=== PATIENT | male | born 1990 | race Caucasian/White ===

== ENCOUNTER 2016-12-15 17:05 | Inpatient (IN) | payer OTHER ==
[~2016-12-15] VITALS: Ht 185.4 cm; Wt 84.7 kg
[2016-12-15 17:13] VITALS: BP 127/80; PULSE 94; RESP 17; TEMP 98.7; O2SAT 100
--- NOTE | 2016-12-15 17:32 | PD ---
HPI . left foot shark bite Chief Complaint: Bite or Sting Time Seen by Provider: 17:31 Travel History International Travel<30 days: No Contact w/Intl Traveler<30days: No Traveled to known affect area: No History of Present Illness HPI 26 yr old male here with left foot shark bite he sustained just prior to arrival. He reports pain with movement. He is up to date on his tetanus. He has limited ROM of his toes. [facility] Past Medical History Medical History: Denies Significant Hx Past Surgical History Surgical History: No Previous Surgery Social History Alcohol Use: Yes (SOCIALLY ) Tobacco Use: No Substance Use: No Allergies-Medications (Allergen,Severity, Reaction): Coded Allergies: aspirin (Verified Allergy, Severe, 12/15/16) Reported Meds & Prescriptions Reported Meds & Active Scripts Active No Active Prescriptions or Reported Medications Review of Systems General / Constitutional: No: Fever Eyes: No: Visual changes HENT: No: Headaches Cardiovascular: No: Chest Pain or Discomfort Respiratory: No: Shortness of Breath Gastrointestinal: No: Abdominal Pain Genitourinary: No: Dysuria Musculoskeletal: Positive: Pain (left foot) Skin: Positive Other (gaping wound of left foot), No Rash Neurologic: No: Weakness Psychiatric: No: Depression Endocrine: No: Polydipsia Hematologic/Lymphatic: No: Easy Bruising Physical Exam Narrative GENERAL: AAO x 3, no acute distress, Well-nourished, well-developed patient. SKIN: Warm and dry. No visible rashes or bruising. left foot dorsum distal to the navicular bone, large gaping wound. also on the medial aspect large lacerations with jagged edges and missing skin, teeth pickett present. HEAD: Normocephalic and atraumatic. EYES: No scleral icterus. No injection or drainage. ENT: No nasal drainage noted. Mucous membranes pink. Airway patent. NECK: Supple, trachea midline. No JVD. CARDIOVASCULAR: Regular rate and rhythm without murmurs, gallops, or rubs. RESPIRATORY: Breath sounds equal bilaterally. No accessory muscle use. No rhonchi or rales. GASTROINTESTINAL: Abdomen soft, non-tender, nondistended. EXTREMITIES: No cyanosis or edema. decreased ability to move toes in the left foot. BACK: No obvious deformity. NEURO: CN II-12 intact, PSYCH: AAO x 3, normal affect. Data Data Last Documented VS Vital Signs Date Time Temp Pulse Resp B/P (MAP) Pulse Ox O2 Delivery O2 Flow Rate FiO2 12/15/16 17:13 98.7 94 17 127/80 (96) 100 Orders Orders Foot, Complete ([id number]) (12/15/16 17:32) Complete Blood Count With Diff (12/15/16 17:49) Basic Metabolic Panel (Bmp) (12/15/16 17:49) Prothrombin Time / Inr (Pt) (12/15/16 17:49) Act Partial Throm Time (Ptt) (12/15/16 17:49) NPO (12/15/16 17:50) Consult Podiatry (12/15/16 ) (Hub Use Only)Inp Phy Cons/Ref (12/15/16 ) Admit To Inpatient (12/15/16 ) Vital Signs (Adult) Q4H (12/15/16 18:16) Activity Bed Rest (12/15/16 18:16) Sodium Chlor 0.9% 1000 Ml Inj (Ns 1000 M (12/15/16 18:16) Sodium Chloride 0.9% Flush (Ns Flush) (12/15/16 18:30) Sodium Chloride 0.9% Flush (Ns Flush) (12/15/16 21:00) Acetaminophen (Tylenol) (12/15/16 18:30) Ondansetron Inj (Zofran Inj) (12/15/16 18:30) Naloxone Inj (Narcan Inj) (12/15/16 18:30) Docusate Sodium-Senna (Samreen-Colace) (12/15/16 21:00) Magnesium Hydroxide Liq (Milk Of Magnesi (12/15/16 18:30) Sennosides (Senokot) (12/15/16 18:30) Bisacodyl Supp (Dulcolax Supp) (12/15/16 18:30) Lactulose Liq (Lactulose Liq) (12/15/16 18:30) Inpatient Certification (12/15/16 ) Piperacil-Tazo 4.5 Gm Premix (Zosyn 4.5 (12/15/16 18:30) Clindamycin Inj (Cleocin Inj) (12/15/16 18:30) Admit Order (Ed Use Only) (12/15/16 18:19) Mri Foot W/O Contrast (12/15/16 ) Labs Laboratory Tests Test 12/15/16 18:00 White Blood Count 15.7 TH/MM3 Red Blood Count 4.69 MIL/MM3 Hemoglobin 15.0 GM/DL Hematocrit 43.1 % Mean Corpuscular Volume 91.8 FL Mean Corpuscular Hemoglobin 31.9 PG Mean Corpuscular Hemoglobin Concent 34.8 % Red Cell Distribution Width 13.2 % Platelet Count 174 TH/MM3 Mean Platelet Volume 7.3 FL Neutrophils (%) (Auto) 85.1 % Lymphocytes (%) (Auto) 8.0 % Monocytes (%) (Auto) 6.1 % Eosinophils (%) (Auto) 0.4 % Basophils (%) (Auto) 0.4 % Neutrophils # (Auto) 13.4 TH/MM3 Lymphocytes # (Auto) 1.3 TH/MM3 Monocytes # (Auto) 1.0 TH/MM3 Eosinophils # (Auto) 0.1 TH/MM3 Basophils # (Auto) 0.1 TH/MM3 CBC Comment DIFF FINAL Differential Comment Prothrombin Time 12.0 SEC Prothromb Time International Ratio 1.1 RATIO Activated Partial Thromboplast Time 24.7 SEC Blood Urea Nitrogen 17 MG/DL Creatinine 1.23 MG/DL Random Glucose 96 MG/DL Calcium Level 9.1 MG/DL Sodium Level 138 MEQ/L Potassium Level 3.7 MEQ/L Chloride Level 105 MEQ/L Carbon Dioxide Level 25.3 MEQ/L Anion Gap 8 MEQ/L Estimat Glomerular Filtration Rate 70 ML/MIN MDM Medical Decision Making Medical Screen Exam Complete: Yes Emergency Medical Condition: Yes Medical Record Reviewed: Yes Differential Diagnosis left foot shark bite, tendon damage to left foot, Narrative Course 26 yr old male here with shark bite of his left foot. On exam he has decreased ROM of his left toes. I suspect tendon injury. I recommend podiatry consult. I have asked Dr. Cruz to see the patient. He agrees. Dr. Cruz has spoken to Dr. Powell, who recommends MRI w and wo contrast. Labs have been ordered. NPO after midnight. OR in morning. Patient admitted. Dr. Cruz has discussed with Dr. Pina Diagnosis Primary Impression: Bitten by shark, initial encounter Additional Impression: Foot injury Qualified Codes: S99.922A - Unspecified injury of left foot, initial encounter Admitting Information Admitting Physician Requests: Admit Scripts No Active Prescriptions or Reported Meds Condition: Stable Madai Saavedra Dec 15, 2016 17:32
--- NOTE | 2016-12-15 18:09 | PD ---
Physical Exam Date Seen by Provider: Dec 15, 2016 Narrative SEEN PATIENT IN CONJUNCTION WITH ELIEZER ARGUETA FOCUS EXAM: LEFT DORSUM WOUND OVER EXTENSOR COMPARTMENT WITHOUT ANY PULSATILE MASS OR ACTIVE BLEEDING, GOOD DISTAL PACKER INSPECTOR, WOUND MEASUREMENTS OVAL SHAPED [id number], DIGITS 2-5TH PASSIVELY FLEXED DUE TO UNOPPOSED FLEXORS, PATIENT UNABLE TO EXTEND DIGITS 2-5 FULLY, WARM TO TOUCH DISTALLY WELL PINK APPEARANCE. NVI EXCEPT AROUND WOUND WHICH IS EXPECTED.. Data Data Last Documented VS Vital Signs Date Time Temp Pulse Resp B/P (MAP) Pulse Ox O2 Delivery O2 Flow Rate FiO2 12/15/16 17:13 98.7 94 17 127/80 (96) 100 Orders Orders Foot, Complete ([id number]) (12/15/16 17:32) Mri Foot W&W/O Contrast (12/15/16 ) Complete Blood Count With Diff (12/15/16 17:49) Basic Metabolic Panel (Bmp) (12/15/16 17:49) Prothrombin Time / Inr (Pt) (12/15/16 17:49) Act Partial Throm Time (Ptt) (12/15/16 17:49) NPO (12/15/16 17:50) Diet Npo Except Meds (12/15/16 Dinner) Consult Podiatry (12/15/16 ) MDM Medical Record Reviewed: Yes Supervised Visit with ADDI: Yes Physician Communication Physician Communication DISCUSSED FULLY WITH KOURTNEY (OUTSOLE SKIVER) WHO RECC NPO AFTER MIDNIGHT WELL MRI W/W/O OF FOOT, VERY APPRECIATIVE OF HIS INPUT Diagnosis Primary Impression: ACUTE SHARK BITE WITH EXTENSOR TENDON INJURY Admitting Information Admitting Physician Requests: Observation Scripts No Active Prescriptions or Reported Meds Freddy Cruz MD Dec 15, 2016 18:09
[2016-12-15 18:28] LABS: AUTOMATED NEUTROPHIL # 13.4 TH/MM3 (1.8-7.7); BASOPHIL # 0.1 TH/MM3 (0-0.2); BASOPHIL % 0.4 % (0.0-2.0); EOSINOPHIL # 0.1 TH/MM3 (0-0.4); EOSINOPHIL % 0.4 % (0.0-4.0); HEMATOCRIT 43.1 % (39.0-51.0); HEMO FLAGS DIFF FINAL; LYMPHOCYTE # 1.3 TH/MM3 (1.0-4.8); MEAN CELL VOLUME 91.8 FL (80.0-100.0); MEAN CORPUSCULAR HEMOGLOBIN 31.9 PG (27.0-34.0); MEAN CORPUSCULAR HGB CONC 34.8 % (32.0-36.0); MONO % 6.1 % (0.0-8.0); NEUT % 85.1 % (16.0-70.0); PLATELET COUNT 174 TH/MM3 (150-450); RED BLOOD COUNT 4.69 MIL/MM3 (4.50-5.90); RED CELL DISTRIBUTION WIDTH 13.2 % (11.6-17.2); WHITE BLOOD COUNT 15.7 TH/MM3 (4.0-11.0)
[2016-12-15] MEDS ORDERED: PIPERACIL-TAZO 4.5 GM PREMIX 100 ML IV ONE (18:30)
[2016-12-15] MEDS ORDERED: SODIUM CHLORIDE 0.9% FLUSH 10 ML FLUSH IV FLUSH PRN (18:30)
[2016-12-15] MEDS ORDERED: NALOXONE HCL 0.4 MG/ML AMP IV PUSH PRN (18:30)
[2016-12-15] MEDS ORDERED: ONDANSETRON HCL 4 MG/2 ML VIAL IVP PRN (18:30)
[2016-12-15] MEDS ORDERED: ACETAMINOPHEN 325 MG TAB PO PRN (18:30)
[2016-12-15] MEDS ORDERED: CLINDAMYCIN INJ 900 MG in SODIUM CHLORIDE 0.9% INJ 100 ML IV ONE (18:30)
[2016-12-15] MEDS ORDERED: LACTULOSE SYRUP 20 GM/30 ML CUP PO PRN (18:30)
[2016-12-15] MEDS ORDERED: SENNOSIDES 8.6 MG TAB PO PRN (18:30)
[2016-12-15] MEDS ORDERED: BISACODYL 10 MG SUPP RECTAL PRN (18:30)
--- NOTE | 2016-12-15 18:31 | RADRPT ---
EXAM DATE/TIME: 12/15/2016 17:49 [facility] COMPARISON: No previous studies available for comparison. INDICATIONS : Laceration to lateral side of foot- Shark bite. MEDICAL HISTORY : None. SURGICAL HISTORY : None. ENCOUNTER: Initial ACUITY: 1 day PAIN SCORE: 7/10 LOCATION: Left lateral Foot. FINDINGS: Soft tissue swelling involving the left midfoot region. No radiopaque foreign bodies. Osseous structu res are intact. Joint spaces are maintained. CONCLUSION: 1. Left midfoot soft tissue swelling without subcutaneous emphysema, radiopaque foreign body, or acut e bony fracture. Alec Bauer MD on December 15, 2016 at 18:28 Board Certified Radiologist. This report was verified electronically.
[2016-12-15 18:35] LABS: APTT (PATIENT) 24.7 SEC (24.3-30.1); INTERNATIONAL NORMALIZED RATIO 1.1 RATIO
--- NOTE | 2016-12-15 18:40 | HHI.HP ---
[facility] Service [facility] Primary Care Physician Unknown Admission Diagnosis LEFT FOOT SHARK BITE WITH EXTENSOR TENDON INJURY Diagnoses: Chief Complaint: Left foot wound secondary to short by Travel History International Travel<30 Days: No Contact w/Intl Traveler <30 Da: No Traveled to Known Affected Are: No History of Present Illness This is a 26-year-old healthy male who presented with left foot wound secondary to shark bit. Patient went to the ER immediately after the shark bite. He stated that he is able to feel sensation and stated that pain is mild. Patient unsure when he last got his tetanus shot. Denies any fevers or chills. He has no other complaints. All other review systems reviewed and negative Past Family Social History Past Medical History Denies any past medical history. Past Surgical History Denies any past surgical history. Reported Medications Reported Meds & Active Scripts Active No Active Prescriptions or Reported Medications Allergies: Coded Allergies: aspirin (Verified Allergy, Severe, 12/15/16) Active Ordered Medications Current Medications Sodium Chloride 1,000 ml @ 100 mls/hr Q10H IV ; Start 12/15/16 at 18:16 Sodium Chloride (NS Flush) 2 ml UNSCH PRN IV FLUSH FLUSH AFTER USING IV ACCESS ; Start 12/15/16 at 18:30 Sodium Chloride (NS Flush) 2 ml BID IV FLUSH ; Start 12/15/16 at 21:00 Acetaminophen (Tylenol) 650 mg Q4H PRN PO TEMP > 100.4; Start 12/15/16 at 18:30 Ondansetron HCl (Zofran Inj) 4 mg Q6H PRN IVP NAUSEA OR VOMITING; Start at 18:30 Naloxone HCl (Narcan Inj) 0.4 mg UNSCH PRN IV PUSH SEE LABEL COMMENTS; Start at 18:30 Senna/Docusate Sodium (Samreen-Colace) 1 tab BID PO ; Start 12/15/16 at 21:00 Magnesium Hydroxide (Milk Of Magnesia Liq) 30 ml Q12H PRN PO MILD - MODERATE CONSTIPATION; Start 12/15/16 at 18:30 Sennosides (Senokot) 17.2 mg Q12H PRN PO MODERATE - SEVERE CONSTIPATION; Start 12/15/16 at 18:30 Bisacodyl (Dulcolax Supp) 10 mg DAILY PRN RECTAL SEVERE CONSITIPATION; Start at 18:30 Lactulose (Lactulose Liq) 30 ml DAILY PRN PO SEVERE CONSITIPATION; Start at 18:30 Piperacillin Sod/ Tazobactam Sod 100 ml @ 200 mls/hr ONCE ONCE IV ; Start at 18:30; Stop 12/15/16 at 18:59 Clindamycin Phosphate 900 mg/ Sodium Chloride 106 ml @ 212 mls/hr ONCE ONCE IV ; Start 12/15/16 at 18:30; Stop 12/15/16 at 18:59 Morphine Sulfate (Morphine Inj) 2 mg Q3H PRN IV PUSH pain 4-10; Start 12/15/16 at 18:45; Status UNV Diphtheria/ Tetanus/Acell Pertussis (Boostrix Inj) 0.5 ml ONCE ONCE IM ; Start 12/15/16 at 18:45; Stop 12/15/16 at 18:46; Status UNV Ampicillin Sodium/ Sulbactam Sodium 3 gm/Sodium Chloride 100 ml @ 200 mls/hr Q6H IV ; Start 12/15/16 at 18:45; Status UNV Clindamycin Phosphate 600 mg/ Sodium Chloride 104 ml @ 208 mls/hr Q6H IV ; Start 12/16/16 at 00:30; Status UNV Family History Past family history reviewed. Social History Drinks occasionally. Denied any tobacco or illicit drug use. Physical Exam Vital Signs Vital Signs Date Time Temp Pulse Resp B/P (MAP) Pulse Ox O2 Delivery O2 Flow Rate FiO2 12/15/16 17:13 98.7 94 17 127/80 (96) 100 Physical Exam GENERAL: This is a well-nourished, well-developed patient, in no apparent distress. SKIN: + left foot + open wounds X 2 bloody. HEAD: Atraumatic. Normocephalic. No temporal or scalp tenderness. EYES: Pupils equal round and reactive. Extraocular motions intact. No scleral icterus. No injection or drainage. ENT: Nose without bleeding, purulent drainage or septal hematoma. Throat without erythema, tonsillar hypertrophy or exudate. Uvula midline. Airway patent. NECK: Trachea midline. No JVD or lymphadenopathy. Supple, nontender, no meningeal signs. CARDIOVASCULAR: Regular rate and rhythm without murmurs, gallops, or rubs. RESPIRATORY: Clear to auscultation. Breath sounds equal bilaterally. No wheezes , rales, or rhonchi. GASTROINTESTINAL: Abdomen soft, non-tender, nondistended. No hepato-splenomegaly , or palpable masses. No guarding. MUSCULOSKELETAL: left foot unable to dorsal flex. NEUROLOGICAL: Awake and alert. Cranial nerves II through XII intact. Motor and sensory grossly within normal limits. Five out of 5 muscle strength in all muscle groups. Normal speech. Laboratory Laboratory Tests Test 12/15/16 18:00 White Blood Count 15.7 Red Blood Count 4.69 Hemoglobin 15.0 Hematocrit 43.1 Mean Corpuscular Volume 91.8 Mean Corpuscular Hemoglobin 31.9 Mean Corpuscular Hemoglobin Concent 34.8 Red Cell Distribution Width 13.2 Platelet Count 174 Mean Platelet Volume 7.3 Neutrophils (%) (Auto) 85.1 Lymphocytes (%) (Auto) 8.0 Monocytes (%) (Auto) 6.1 Eosinophils (%) (Auto) 0.4 Basophils (%) (Auto) 0.4 Neutrophils # (Auto) 13.4 Lymphocytes # (Auto) 1.3 Monocytes # (Auto) 1.0 Eosinophils # (Auto) 0.1 Basophils # (Auto) 0.1 CBC Comment DIFF FINAL Differential Comment Prothrombin Time 12.0 Prothromb Time International Ratio 1.1 Activated Partial Thromboplast Time 24.7 Result Diagram: 12/15/16 1800 Imaging Last Impressions Foot X-Ray 12/15/16 [id number] Signed Impressions: Service Date/Time: Thursday, December 15, 2016 17:49 - CONCLUSION: 1. Left midfoot soft tissue swelling without subcutaneous emphysema, radiopaque foreign body, or acute bony fracture. MD Anuj Ceja VTE Risk Assessment Juhii VTE Risk Assessment: No/Low Risk (score <= 1) Caprini Risk Assessment Model Point Value = 1 Point Value = 2 Point Value = 3 Point Value = 5 Age 41-60 Minor surgery BMI > 25 kg/m2 Swollen legs Varicose veins or History of unexplained or recurrent spontaneous Oral contraceptives or hormone replacement Sepsis (< 1 month) Serious lung disease, including pneumonia (< 1 month) Abnormal pulmonary function Acute myocardial infarction Congestive heart failure (< 1 month) History of inflammatory bowel disease Medical patient at bed rest Age 61-74 Arthroscopic surgery Major open surgery (> 45 min) Laparoscopic surgery (> 45 min) Malignancy Confined to bed (> 72 hours) Immobilizing plaster cast Central venous access Age >= 75 History of VTE Family history of VTE Factor V Leiden Prothrombin [id number] Lupus anticoagulant Anticardiolipin antibodies Elevated serum homocysteine Heparin-induced thrombocytopenia Other congenital or acquired thrombophilia Stroke (< 1 month) Elective arthroplasty Hip, pelvis, or leg fracture Acute spinal cord injury (< 1 month) Prophylaxis Regimen Total Risk Factor Score Risk Level Prophylaxis Regimen 0-1 Low Early ambulation 2 Moderate Order ONE of the following: *Sequential Compression Device (SCD) *Heparin 5000 units SQ BID 3-4 Higher Order ONE of the following medications: *Heparin 5000 units SQ TID *Enoxaparin/Lovenox 40 mg SQ daily (WT < 150 kg, CrCl > 30 mL/min) *Enoxaparin/Lovenox 30 mg SQ daily (WT < 150 kg, CrCl > 10-29 mL/min) *Enoxaparin/Lovenox 30 mg SQ BID (WT < 150 kg, CrCl > 30 mL/min) AND/OR *Sequential Compression Device (SCD) 5 or more Highest Order ONE of the following medications: *Heparin 5000 units SQ TID (Preferred with Epidurals) *Enoxaparin/Lovenox 40 mg SQ daily (WT < 150 kg, CrCl > 30 mL/min) *Enoxaparin/Lovenox 30 mg SQ daily (WT < 150 kg, CrCl > 10-29 mL/min) *Enoxaparin/Lovenox 30 mg SQ BID (WT < 150 kg, CrCl > 30 mL/min) AND *Sequential Compression Device (SCD) Assessment and Plan Assessment and Plan 26-year-old male who presented with left foot wounds secondary shark bites Left foot wounds secondary to shark bites -X-ray obtained showing midfoot swelling. -Dr. Powell already consulted and requested MRI of the foot and nothing by mouth at midnight. Order already placed. -Patient was given clindamycin and Zosyn in the ED. Will give Unasyn and continue clindamycin. Will consult infectious disease. -Patient unsure when he last got his tetanus shot. Due to severe of wound will give Tdap. Leukocytosis -Most likely secondary to wound. Treatment as above. -Continue to monitor clinically. Code Status full code Discussed Condition With patient Physician Certification 2 Midnight Certification Type: Admission for Inpatient Services Order for Inpatient Services The services are ordered in accordance with Medicare regulations or non- Medicare payer requirements, as applicable. In the case of services not specified as inpatient-only, they are appropriately provided as inpatient services in accordance with the 2-midnight benchmark. Estimated LOS (days): 3 3 days is the estimated time the patient will need to remain in the hospital, assuming treatment plan goals are met and no additional complications. Post-Hospital Plan: Hines Anita Pina MD Dec 15, 2016 18:40
[2016-12-15] MEDS: SODIUM CHLOR 0.9% 1000 ML INJ 1,000 ML IV SCH (18:43)
[2016-12-15] MEDS ORDERED: DIPHTH/TETANUS/ACEL PERTUSSIS (BOOSTER) 0.5 ML VIAL/PFS IM ONE (18:45)
[2016-12-15 18:50] LABS: BICARBONATE 25.3 MEQ/L (21.0-32.0); POTASSIUM 3.7 MEQ/L (3.5-5.1)
[2016-12-15] MEDS: MORPHINE SULFATE 4 MG/ML INJ IV PUSH PRN ×2 (19:13→23:46)
[2016-12-15 19:55] VITALS: BP 156/91; PULSE 110; RESP 16; TEMP 96.8; O2SAT 98
--- NOTE | 2016-12-15 20:29 | RADRPT ---
EXAM DATE/TIME: 12/15/2016 19:24 [facility] COMPARISON: No previous studies available for comparison. INDICATIONS : Internal derangement. Shark bite MEDICAL HISTORY : None. SURGICAL HISTORY : None. ENCOUNTER: Initial ACUITY: 1 day PAIN SCORE: 4/10 LOCATION: Left foot TECHNIQUE: Multiplanar, multisequence MRI examination was performed without contrast. FINDINGS: Deep and irregular soft tissue lacerations are seen at the level of the mid foot, both dorsal/lateral and plantar/medial. The dorsal/lateral soft tissue injury is associated with transection of the extensor digitorum longus tendons with approximately 27 mm of separation at the level of the cuneiforms. There is a 12 mm sepa rated laceration of extensor digitorum brevis, near the level of the mid muscle belly. Tibialis anter ior and extensor hallucis longus are intact. The plantar/medial soft tissue injury includes a transection of adductor hallucis at the level of the distal myotendinous junction with approximately 1 cm of separation of the tendon fibers, series 7 im age 20 and series 5 image 15. Tibialis posterior, flexor hallucis longus and flexor digitorum longus are all intact. I don't see a fracture. No subluxations. CONCLUSION: 1. Deep soft tissue laceration dorsally of the midfoot and with associated rupture of extensor digito rum longus with 27 mm of separation. There is a 12 mm cleft of extensor digitorum brevis mu scle belly. 2. Deep soft tissue laceration of the plantar/medial midfoot and with a 10 mm rupture of ab ductor pollicis. 3. No fracture or subluxation. Louie Colón MD on December 15, 2016 at 20:15 Board Certified Radiologist. This report was verified electronically.
[2016-12-15] MEDS: DOCUSATE SODIUM 50 MG/SENNA 8.6 MG TAB PO SCH (21:27)
[2016-12-15] MEDS: SODIUM CHLORIDE 0.9% FLUSH 10 ML FLUSH IV FLUSH SCH (21:27)
[2016-12-15] MEDS: AMPICILLIN-SULBACTAM INJ 3 GM in SODIUM CHLORIDE 0.9% INJ 100 ML IV SCH (21:27)
[2016-12-16] VITALS (7 sets, daily range): BP systolic 117–128; BP diastolic 69–78; PULSE 70–97; RESP 16; TEMP 97.2–98.7; O2SAT 99–100
[2016-12-16] MEDS: CLINDAMYCIN INJ 600 MG in SODIUM CHLORIDE 0.9% INJ 100 ML IV SCH ×4 (02:13→20:31)
[2016-12-16] MEDS: AMPICILLIN-SULBACTAM INJ 3 GM in SODIUM CHLORIDE 0.9% INJ 100 ML IV SCH ×3 (02:13→14:00)
[2016-12-16] MEDS: SODIUM CHLOR 0.9% 1000 ML INJ 1,000 ML IV SCH ×2 (02:57→14:16)
[2016-12-16] MEDS: MORPHINE SULFATE 4 MG/ML INJ IV PUSH PRN ×3 (03:04→22:10)
[2016-12-16] MEDS ORDERED: SODIUM CHLORID 0.9% 500 ML IV PRN (04:00)
[2016-12-16] MEDS ORDERED: METOPROLOL TARTRATE 25 MG TAB PO PRN (04:00)
[2016-12-16] MEDS ORDERED: INSULIN HUMAN REGULAR 1,000 UNITS/10 ML VIAL SQ PRN (04:00)
[2016-12-16] MEDS ORDERED: CHLORHEXIDINE GLUCONATE 2 % 1 PACK (2 CLOTHS) TOPICAL PRN (04:00)
[2016-12-16] MEDS ORDERED: LACTATED RINGER'S 1000 ML IV PRN (04:00)
[2016-12-16] MEDS ORDERED: POVIDONE IODINE 5% (ANTISEPSIS KIT) 4 APPLICATIONS EACH NARE PRN (04:00)
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
[2016-12-16] MEDS: DOCUSATE SODIUM 50 MG/SENNA 8.6 MG TAB PO SCH ×2 (08:33→20:31)
[2016-12-16] MEDS: SODIUM CHLORIDE 0.9% FLUSH 10 ML FLUSH IV FLUSH SCH ×3 (08:41→20:32)
[2016-12-16 10:03] LABS: HEMATOCRIT 45.4 % (39.0-51.0); MEAN CELL VOLUME 93.4 FL (80.0-100.0); MEAN CORPUSCULAR HEMOGLOBIN 31.5 PG (27.0-34.0); MEAN CORPUSCULAR HGB CONC 33.7 % (32.0-36.0); PLATELET COUNT 192 TH/MM3 (150-450); RED BLOOD COUNT 4.85 MIL/MM3 (4.50-5.90); RED CELL DISTRIBUTION WIDTH 13.7 % (11.6-17.2); REVIEW FLAG FINAL; WHITE BLOOD COUNT 10.6 TH/MM3 (4.0-11.0)
[2016-12-16 10:33] LABS: POTASSIUM 3.3 MEQ/L (3.5-5.1)
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
[2016-12-16] MEDS ORDERED: NEOSTIGMINE 3 MG/3 ML SYR IV ONE (12:00)
[2016-12-16] MEDS ORDERED: ONDANSETRON HCL 4 MG/2 ML VIAL IV PUSH ONE (12:00)
[2016-12-16] MEDS ORDERED: ROCURONIUM INJ 50 MG/5 ML SYRINGE IV PUSH ONE (12:00)
[2016-12-16] MEDS ORDERED: GLYCOPYRROLATE 0.2 MG/ML VIAL IV ONE (12:00)
[2016-12-16] MEDS ORDERED: DEXAMETHASONE SOD PHOS 4 MG/ML VIAL IV ONE (12:00)
[2016-12-16] MEDS ORDERED: PROPOFOL 200 MG/20 ML AMP IV ONE (12:00)
[2016-12-16] MEDS ORDERED: MORPHINE SULFATE 4 MG/ML INJ IV ONE (12:00)
[2016-12-16] MEDS ORDERED: MIDAZOLAM HCL 2 MG/2 ML VIAL IV ONE (12:00)
[2016-12-16] MEDS ORDERED: LIDOCAINE HCL 1% PF 5 ML AMPULE OTHER ONE (12:00)
[2016-12-16] MEDS ORDERED: BUPIVACAINE HCL PF 0.5% 10 ML VIAL INFIL ONE (15:37)
--- NOTE | 2016-12-16 15:44 | PD.OP ---
Operative Report Date of Surgery: Dec 16, 2016 Preoperative Diagnosis: (1) Bitten by shark, initial encounter Left foot Postoperative Diagnosis: (1) Bitten by shark, initial encounter Left foot Procedure: Irrigation and wounds with debridement with repair of extensor digitorum and brevis tendons. Application of negative pressure wound VAC all left foot Anesthesia: General inhalation Surgeon: Rickie Powell DPM Metal Stud Framer(s): OSIIRS Operation and Findings: Patient was brought to the OR and placed on the operating table in the supine position and pneumatic ankle cuff was applied to the left ankle after adequate web roll padding. After the dressing was removed patient started bleeding profusely and the pneumatic ankle cuff was inflated to 250 mercury. Left lower extremity was lowered to the operating table and after the appropriate timeout was performed attention was directed to the left foot. It was noted that the patient had a sharp plate medially and dorsally with a defect in the skin and severing of the extensor digitorum tendons at its muscle belly. Any stray skin edges were excised. A versa jet was utilized to clean out all hematoma from all of the plate marked areas. The extensor digitorum tendon or identified and although there was a defect they were reattached to the muscle belly using 3-0 polyester. Attention was directed to the medial aspect of the foot were all necrotic skin edges were removed. Areas were cleaned up and the devitalized tissue was removed. Surgical skin chinyere were utilized to hold any skin edges together. 2-0 Vicryl was utilized on the dorsal lateral defect. The wound VAC set at 125 mmHg was applied to the foot covering both the medial and dorsal wounds. Good seal the wound VAC was noted. Estimated blood loss was less than 20 cc. The pneumatic ankle cuff was deflated and vascular status returned to all digits of the left foot. Sponge and instrument count were noted to be correct. Patient tolerated the procedures and anesthesia well and left the OR to PACU in apparent satisfactory conditions without S signs stable endovascular status intact to the left foot. 15 cc 0.5% Marcaine was infiltrated prior to applying the negative pressure wound VAC to the left foot. Rickie Powell DPM Dec 16, 2016 15:44
[2016-12-16] MEDS ORDERED: SODIUM CHLORIDE 0.9% FLUSH 10 ML FLUSH IV FLUSH PRN (15:45)
[2016-12-16] MEDS ORDERED: Post-op Orders (for Pharmacy) MISC XX ONE (15:45)
[2016-12-16] MEDS ORDERED: HYDROmorphone HCL PF 1 MG/ML VIAL IV PUSH PRN ×2 (15:45)
[2016-12-16] MEDS ORDERED: NALOXONE HCL 0.4 MG/ML AMP IV PUSH PRN (15:45)
[2016-12-16] MEDS ORDERED: HYDROmorphone HCL 2 MG TAB PO PRN (15:45)
[2016-12-16] MEDS ORDERED: DOXYCYCLINE INJ 100 MG in SODIUM CHLORIDE 0.9% INJ 100 ML IV SCH (18:00)
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
[2016-12-16] MEDS: LEVOFLOXACIN 750 MG PREMIX INJ 150 ML IV SCH (19:06)
[2016-12-16] MEDS ORDERED: POTASSIUM CHLORIDE 10 MEQ CONTROLLED RELEASE TAB PO ONE (19:30)
[2016-12-16] MEDS: DOXYCYCLINE INJ 100 MG in SODIUM CHLORIDE 0.9% INJ 100 ML IV SCH (22:02)
[2016-12-17] MEDS: SODIUM CHLOR 0.9% 1000 ML INJ 1,000 ML IV SCH ×3 (00:17→20:06)
[2016-12-17 00:19] VITALS: BP 111/63; PULSE 76; RESP 16; TEMP 98.8; O2SAT 99
[2016-12-17] MEDS: CLINDAMYCIN INJ 600 MG in SODIUM CHLORIDE 0.9% INJ 100 ML IV SCH ×4 (02:17→20:06)
[2016-12-17] MEDS: MORPHINE SULFATE 4 MG/ML INJ IV PUSH PRN ×6 (02:17→23:10)
[2016-12-17 04:36] VITALS: BP 137/87; PULSE 62; RESP 16; TEMP 97.5; O2SAT 98
[2016-12-17 07:49] VITALS: BP 138/72; PULSE 72; RESP 16; TEMP 95.8; O2SAT 100
[2016-12-17] MEDS: DOCUSATE SODIUM 50 MG/SENNA 8.6 MG TAB PO SCH ×2 (08:43→20:09)
[2016-12-17] MEDS: SODIUM CHLORIDE 0.9% FLUSH 10 ML FLUSH IV FLUSH SCH ×3 (08:43→20:06)
[2016-12-17] MEDS: DOXYCYCLINE INJ 100 MG in SODIUM CHLORIDE 0.9% INJ 100 ML IV SCH ×2 (10:26→20:06)
[2016-12-17 11:43] VITALS: BP 127/75; PULSE 75; RESP 17; TEMP 97.3; O2SAT 100
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
[2016-12-17 15:55] VITALS: BP 144/78; PULSE 81; RESP 16; TEMP 97.9; O2SAT 100
[2016-12-17 17:33] LABS: HEMATOCRIT 41.5 % (39.0-51.0); MEAN CELL VOLUME 92.7 FL (80.0-100.0); MEAN CORPUSCULAR HEMOGLOBIN 32.3 PG (27.0-34.0); MEAN CORPUSCULAR HGB CONC 34.8 % (32.0-36.0); PLATELET COUNT 183 TH/MM3 (150-450); RED BLOOD COUNT 4.48 MIL/MM3 (4.50-5.90); RED CELL DISTRIBUTION WIDTH 13.7 % (11.6-17.2); REVIEW FLAG FINAL; WHITE BLOOD COUNT 8.3 TH/MM3 (4.0-11.0)
[2016-12-17 18:00] LABS: BICARBONATE 29.1 MEQ/L (21.0-32.0); POTASSIUM 3.5 MEQ/L (3.5-5.1)
[2016-12-17] MEDS: LEVOFLOXACIN 750 MG PREMIX INJ 150 ML IV SCH (18:21)
[2016-12-17] MEDS: MELATONIN 5 MG TAB PO SCH (20:13)
[2016-12-17 20:17] VITALS: BP 138/78; PULSE 107; RESP 18; TEMP 97; O2SAT 99
[2016-12-18] MEDS: CLINDAMYCIN INJ 600 MG in SODIUM CHLORIDE 0.9% INJ 100 ML IV SCH ×4 (00:53→20:03)
[2016-12-18 00:55] VITALS: BP 133/80; PULSE 81; RESP 18; TEMP 96.7; O2SAT 97
[2016-12-18] MEDS: SODIUM CHLOR 0.9% 1000 ML INJ 1,000 ML IV SCH (05:39)
[2016-12-18 07:39] VITALS: BP 112/77; PULSE 65; RESP 18; TEMP 96.9; O2SAT 100
[2016-12-18] MEDS: DOXYCYCLINE INJ 100 MG in SODIUM CHLORIDE 0.9% INJ 100 ML IV SCH ×2 (08:12→20:03)
[2016-12-18] MEDS: DOCUSATE SODIUM 50 MG/SENNA 8.6 MG TAB PO SCH ×2 (08:12→20:03)
[2016-12-18] MEDS: SODIUM CHLORIDE 0.9% FLUSH 10 ML FLUSH IV FLUSH SCH ×2 (08:12→20:10)
[2016-12-18] MEDS: MORPHINE SULFATE 4 MG/ML INJ IV PUSH PRN ×2 (09:05→12:41)
[2016-12-18 11:38] VITALS: BP 115/65; PULSE 69; RESP 18; TEMP 97.4; O2SAT 100
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
[2016-12-18] MEDS: oxyCODONE/ACETAMINOPHEN 5 MG/325 MG TAB PO PRN ×3 (14:09→23:08)
--- NOTE | 2016-12-18 15:30 | HHI.PR ---
Subjective Remarks Follow-up for shark bite wound Patient stated pain is controlled. He stated that melatonin to help him sleep. He has no other complaints. His mother is at the bedside. Objective Vitals Vital Signs Date Time Temp Pulse Resp B/P (MAP) Pulse Ox O2 Delivery O2 Flow Rate FiO2 12/18/16 11:38 97.4 69 18 115/65 (82) 100 12/18/16 07:39 96.9 65 18 112/77 (89) 100 12/18/16 00:55 96.7 81 18 133/80 (97) 97 12/17/16 20:31 21 12/17/16 20:17 97.0 107 18 138/78 (98) 99 12/17/16 15:55 97.9 81 16 144/78 (100) 100 I/O 12/17/16 12/17/16 12/17/16 12/18/16 12/18/16 12/18/16 07:00 15:00 23:00 07:00 15:00 23:00 Intake Total 1304 ml 1299 ml 1409 ml 548 ml 850 ml Output Total 500 ml 0 ml 625 ml 600 ml 1000 ml Balance 804 ml 1299 ml 784 ml -52 ml -150 ml Intake Oral 480 ml 1200 ml 360 ml 360 ml 850 ml IV Total 824 ml 99 ml 1049 ml 188 ml Output Urine Total 500 ml 625 ml 600 ml 1000 ml Drainage Total 0 ml 0 ml # Voids 3 2 # Bowel Movements 0 0 0 0 Result Diagram: 12/17/16 1724 12/17/16 1724 Objective Remarks GENERAL: This is a well-nourished, well-developed patient, in no apparent distress. SKIN: Left foot wound VAC in place. NECK: Trachea midline. No JVD or lymphadenopathy. Supple, nontender, no meningeal signs. CARDIOVASCULAR: Regular rate and rhythm without murmurs, gallops, or rubs. RESPIRATORY: Clear to auscultation. Breath sounds equal bilaterally. No wheezes , rales, or rhonchi. GASTROINTESTINAL: Abdomen soft, non-tender, nondistended. No hepato-splenomegaly , or palpable masses. No guarding. Medications and IVs Current Medications Sodium Chloride 1,000 ml @ 100 mls/hr Q10H IV Last administered on 12/17/16t 10:26; Start 12/15/16 at 18:16; Stop 12/18/16 at 12:46; Status DC Sodium Chloride (NS Flush) 2 ml UNSCH PRN IV FLUSH FLUSH AFTER USING IV ACCESS ; Start 12/15/16 at 18:30; Stop 12/17/16 at 14:05; Status DC Sodium Chloride (NS Flush) 2 ml BID IV FLUSH Last administered on 12/15/16 21: 27; Start 12/15/16 at 21:00; Stop 12/17/16 at 14:05; Status DC Acetaminophen (Tylenol) 650 mg Q4H PRN PO TEMP > 100.4; Start 12/15/16 at 18:30 Ondansetron HCl (Zofran Inj) 4 mg Q6H PRN IVP NAUSEA OR VOMITING; Start at 18:30 Naloxone HCl (Narcan Inj) 0.4 mg UNSCH PRN IV PUSH SEE LABEL COMMENTS; Start at 18:30; Stop 12/17/16 at 14:04; Status DC Senna/Docusate Sodium (Samreen-Colace) 1 tab BID PO Last administered on 08:12; Start 12/15/16 at 21:00 Magnesium Hydroxide (Milk Of Magnesia Liq) 30 ml Q12H PRN PO MILD - MODERATE CONSTIPATION; Start 12/15/16 at 18:30 Sennosides (Senokot) 17.2 mg Q12H PRN PO MODERATE - SEVERE CONSTIPATION; Start 12/15/16 at 18:30 Bisacodyl (Dulcolax Supp) 10 mg DAILY PRN RECTAL SEVERE CONSITIPATION; Start at 18:30 Lactulose (Lactulose Liq) 30 ml DAILY PRN PO SEVERE CONSITIPATION; Start at 18:30 Piperacillin Sod/ Tazobactam Sod 100 ml @ 200 mls/hr ONCE ONCE IV Last administered on 12/15/16 18:43; Start 12/15/16 at 18:30; Stop 12/15/16 at 18:59 ; Status DC Clindamycin Phosphate 900 mg/ Sodium Chloride 106 ml @ 212 mls/hr ONCE ONCE IV Last administered on 12/15/16 21:27; Start 12/15/16 at 18:30; Stop at 18:59; Status DC Morphine Sulfate (Morphine Inj) 2 mg Q3H PRN IV PUSH pain 1-10 Last administered on 12/18/16 12:41; Start 12/15/16 at 18:45 Diphtheria/ Tetanus/Acell Pertussis (Boostrix Inj) 0.5 ml ONCE ONCE IM ; Start 12/15/16 at 18:45; Stop 12/15/16 at 18:46; Status DC Ampicillin Sodium/ Sulbactam Sodium 3 gm/Sodium Chloride 100 ml @ 200 mls/hr Q6H IV Last administered on 12/16/16 09:13; Start 12/15/16 at 20:00; Stop at 18:37; Status DC Clindamycin Phosphate 600 mg/ Sodium Chloride 104 ml @ 208 mls/hr Q6H IV Last administered on 12/18/16 14:08; Start 12/16/16 at 02:00 Lactated Ringer's 1,000 ml @ 30 mls/hr Q24H PRN IV SEE LABEL COMMENTS; Start at 04:00; Stop 12/19/16 at 03:59 Sodium Chloride 500 ml @ 30 mls/hr [id number] PRN IV SEE LABEL COMMENTS; Start at 04:00; Stop 12/19/16 at 03:59 Metoprolol Tartrate (Lopressor) 25 mg COUNTER TACKER PRN PO SEE LABEL COMMENTS; Start 12/16/16 at 04:00; Stop 12/19/16 at 03:59 Povidone Iodine (Betadine 5% Antisepsis Kit) 1 applic COUNTER TACKER PRN EACH NARE SEE LABEL COMMENTS; Start 12/16/16 at 04:00; Stop 12/19/16 at 03:59 Chlorhexidine Gluconate (Chlorhexidine 2% Cloth) 3 pack COUNTER TACKER PRN TOPICAL SEE LABEL COMMENTS; Start 12/16/16 at 04:00; Stop 12/19/16 at 03:59 Insulin Human Regular (NovoLIN R INJ) See Protocol Table ... COUNTER TACKER PRN SQ SEE PROTOCOL TABLE; Start 12/16/16 at 04:00; Stop 12/19/16 at 03:59 Sodium Chloride (NS Flush) 2 ml UNSCH PRN IV FLUSH FLUSH AFTER USING IV ACCESS ; Start 12/16/16 at 15:45 Sodium Chloride (NS Flush) 2 ml BID IV FLUSH ; Start 12/16/16 at 21:00 Miscellaneous Information (Post-op Orders (for Pharmacy)) STAT ONCE XX ; Start 12/16/16 at 15:45; Stop 12/16/16 at 15:46; Status DC Hydromorphone HCl (Dilaudid Pf Inj) 1 mg Q3H PRN IV PUSH Pain 6-10;if unable to take PO; Start 12/16/16 at 15:45; Stop 12/17/16 at 11:20; Status DC Hydromorphone HCl (Dilaudid Pf Inj) 1 mg Q3H PRN IV PUSH BREAKTHROUGH PAIN; Start 12/16/16 at 15:45; Stop 12/17/16 at 11:20; Status DC Hydromorphone HCl (Dilaudid) 1 mg Q4H PRN PO PAIN SCALE 3 TO 5; Start 12/16/16 at 15:45; Stop 12/17/16 at 11:20; Status DC Naloxone HCl (Narcan Inj) 0.4 mg UNSCH PRN IV PUSH SEE LABEL COMMENTS; Start at 15:45 Bupivacaine HCl (Marcaine Pf 0.5% Inj) 20 ml ONCE ONCE INFIL Last administered on 12/16/16 15:00; Start 12/16/16 at 15:37; Stop 12/16/16 at 15:39 ; Status DC Levofloxacin/ Dextrose 150 ml @ 100 mls/hr Q24H IV Last administered on 18:21; Start 12/16/16 at 18:00 Doxycycline Hyclate 100 mg/ Sodium Chloride 100 ml @ 100 mls/hr Q12H IV ; Start 12/16/16 at 18:00; Stop 12/16/16 at 20:22; Status DC Potassium Chloride (KCl) 30 meq ONCE ONCE PO Last administered on 12/16/16 20 :32; Start 12/16/16 at 19:30; Stop 12/16/16 at 19:31; Status DC Doxycycline Hyclate 100 mg/ Sodium Chloride 100 ml @ 100 mls/hr Q12H IV Last administered on 12/18/16 08:12; Start 12/16/16 at 21:00 Oxycodone/ Acetaminophen (Percocet 5-325 Mg) 1 tab Q4H PRN PO pain 1-7; Start 12/17/16 at 11:30 Oxycodone/ Acetaminophen (Percocet 5-325 Mg) 2 tab Q4H PRN PO pain 8-10 Last administered on 12/18/16 14:09; Start 12/17/16 at 11:30 Melatonin (Melatonin) 5 mg HS PO Last administered on 12/17/16 20:13; Start at 21:00 A/P Assessment and Plan 26-year-old male who presented with left foot wounds secondary shark bites Left foot wounds/injury secondary to shark bites -X-ray obtained showing midfoot swelling. MRI showed deep tissue laceration, rupture of the extensor digitorum longus with separation, separation of the extensor digitorum brevis, rupture of the abductor pollicis. -Status post irrigation of wound and repair of extensor digitorum and brevis tendon with wound VAC placement on 12/16/[address] Powell. Management of her Dr. Powell. Patient had wound VAC replaced today. Per Dr. Powell if wound looks go then will need split-thickness skin graft for Saturday. -Infectious disease consulted and patient is IV Levaquin, doxycycline, clindamycin. -Status post Tdap. Leukocytosis, resolved. -Most likely secondary to wound. Treatment as above. -Continue to monitor clinically. Anita Pina MD Dec 18, 2016 15:30
[2016-12-18 15:33] VITALS: BP 158/80; PULSE 75; RESP 18; TEMP 96.5; O2SAT 100
[2016-12-18] MEDS: MAGNESIUM HYDROXIDE SUSP 30 ML CUP PO PRN (17:49)
[2016-12-18] MEDS: LEVOFLOXACIN 750 MG PREMIX INJ 150 ML IV SCH (17:50)
--- NOTE | 2016-12-18 19:01 | HHI.PR ---
Addendum to Inpatient Note Additional Information Pt seen around 1530 Full note to follow Lisa Mcneil MD Dec 18, 2016 19:01
[2016-12-18] MEDS: MELATONIN 5 MG TAB PO SCH (20:03)
[2016-12-18 20:05] VITALS: BP 136/91; PULSE 82; RESP 16; TEMP 98.1; O2SAT 100
--- NOTE | 2016-12-18 23:10 | HHI.IDPN ---
Subjective Subjective Remarks doing fine improving no fever no leukocytosis Antibiotics clinda levaquin doxy Allergies: Coded Allergies: aspirin (Verified Allergy, Severe, 12/15/16) Objective . Vital Signs Date Time Temp Pulse Resp B/P (MAP) Pulse Ox O2 Delivery O2 Flow Rate FiO2 12/18/16 15:33 96.5 75 18 158/80 (106) 100 12/18/16 11:38 97.4 69 18 115/65 (82) 100 12/18/16 07:39 96.9 65 18 112/77 (89) 100 12/18/16 00:55 96.7 81 18 133/80 (97) 97 12/18/16 12/18/16 12/19/16 15:00 23:00 07:00 Intake Total 850 ml 740 ml Output Total 1000 ml 0 ml Balance -150 ml 740 ml Intake Oral 850 ml 480 ml IV Total 260 ml Output Urine Total 1000 ml Drainage Total 0 ml # Voids 4 # Bowel Movements 0 . Laboratory Tests Test 12/17/16 17:24 White Blood Count 8.3 TH/MM3 Red Blood Count 4.48 MIL/MM3 Hemoglobin 14.5 GM/DL Hematocrit 41.5 % Mean Corpuscular Volume 92.7 FL Mean Corpuscular Hemoglobin 32.3 PG Mean Corpuscular Hemoglobin Concent 34.8 % Red Cell Distribution Width 13.7 % Platelet Count 183 TH/MM3 Mean Platelet Volume 7.5 FL Laboratory Tests Test 12/17/16 17:24 Blood Urea Nitrogen 9 MG/DL Creatinine 1.03 MG/DL Random Glucose 89 MG/DL Calcium Level 8.3 MG/DL Sodium Level 140 MEQ/L Potassium Level 3.5 MEQ/L Chloride Level 106 MEQ/L Carbon Dioxide Level 29.1 MEQ/L Anion Gap 5 MEQ/L Estimat Glomerular Filtration Rate 86 ML/MIN Imaging Last Impressions Foot X-Ray 12/15/16 1732 Signed Impressions: Service Date/Time: Thursday, December 15, 2016 17:49 - CONCLUSION: 1. Left midfoot soft tissue swelling without subcutaneous emphysema, radiopaque foreign body, or acute bony fracture. Alec Bauer MD Foot MRI 12/15/16 0000 Signed Impressions: Service Date/Time: Thursday, December 15, 2016 19:24 - CONCLUSION: 1. Deep soft tissue laceration dorsally of the midfoot and with associated rupture of extensor digitorum longus with 27 mm of separation. There is a 12 mm cleft of extensor digitorum brevis muscle belly. 2. Deep soft tissue laceration of the plantar/medial midfoot and with a 10 mm rupture of abductor pollicis. 3. No fracture or subluxation. Louie Colón MD Physical Exam CONSTITUTIONAL/GENERAL: This is an adequately nourished patient, in no apparent distress. TUBES/LINES/DRAINS: SKIN: No jaundice, rashes, or lesions. MUSCULOSKELETAL: Extremities without clubbing, cyanosis, or edema. L foot with VAC dressing in place no ascending lymphangitis or cellu;litis Toes appear free of neurovasc deficits NEUROLOGICAL: Awake and alert. NOn focal Assessment & Plan Remarks L foot traumatic laceration including tendon and muscle lacerations sp Bitten by shark, initial encounter sp Irrigation and wounds with debridement with repair of extensor digitorum and brevis tendonsand application of negative pressure wound VAC l left foot complete 72 hrs Levaquine, doxycycline dc clindamycin Lisa Davidson Dr, MD Dec 18, 2016 23:10
[2016-12-18 23:40] VITALS: BP 153/75; PULSE 97; RESP 16; TEMP 97; O2SAT 100
[2016-12-19 08:00] VITALS: BP 117/76; PULSE 72; RESP 18; TEMP 97.3; O2SAT 100
[2016-12-19] MEDS: DOXYCYCLINE INJ 100 MG in SODIUM CHLORIDE 0.9% INJ 100 ML IV SCH (09:16)
[2016-12-19] MEDS: DOCUSATE SODIUM 50 MG/SENNA 8.6 MG TAB PO SCH ×2 (09:17→20:46)
[2016-12-19] MEDS: SODIUM CHLORIDE 0.9% FLUSH 10 ML FLUSH IV FLUSH SCH ×2 (09:18→20:47)
--- NOTE | 2016-12-19 10:12 | HHI.PR ---
Subjective Remarks Follow-up for shark bite Patient has no complaints. He stated pain is controlled. He remains afebrile. Objective Vitals Vital Signs Date Time Temp Pulse Resp B/P (MAP) Pulse Ox O2 Delivery O2 Flow Rate FiO2 12/19/16 08:00 97.3 72 18 117/76 (90) 100 12/18/16 23:40 97.0 97 16 153/75 (101) 100 12/18/16 20:05 98.1 82 16 136/91 (106) 100 12/18/16 15:33 96.5 75 18 158/80 (106) 100 12/18/16 11:38 97.4 69 18 115/65 (82) 100 I/O 12/18/16 12/18/16 12/18/16 12/19/16 12/19/16 12/19/16 07:00 15:00 23:00 07:00 15:00 23:00 Intake Total 548 ml 850 ml 740 ml 444 ml Output Total 600 ml 1000 ml 0 ml 700 ml Balance -52 ml -150 ml 740 ml -256 ml Intake Oral 360 ml 850 ml 480 ml 240 ml IV Total 188 ml 260 ml 204 ml Output Urine Total 600 ml 1000 ml 700 ml Drainage Total 0 ml 0 ml # Voids 4 # Bowel Movements 0 0 0 Result Diagram: 12/17/16 1724 12/17/16 172 Objective Remarks GENERAL: This is a well-nourished, well-developed patient, in no apparent distress. SKIN: Left foot wound VAC in place. NECK: Trachea midline. No JVD or lymphadenopathy. Supple, nontender, no meningeal signs. CARDIOVASCULAR: Regular rate and rhythm without murmurs, gallops, or rubs. RESPIRATORY: Clear to auscultation. Breath sounds equal bilaterally. No wheezes , rales, or rhonchi. GASTROINTESTINAL: Abdomen soft, non-tender, nondistended. No hepato-splenomegaly , or palpable masses. No guarding. Medications and IVs Current Medications Sodium Chloride 1,000 ml @ 100 mls/hr Q10H IV Last administered on 12/17/16t 10:26; Start 12/15/16 at 18:16; Stop 12/18/16 at 12:46; Status DC Sodium Chloride (NS Flush) 2 ml UNSCH PRN IV FLUSH FLUSH AFTER USING IV ACCESS ; Start 12/15/16 at 18:30; Stop 12/17/16 at 14:05; Status DC Sodium Chloride (NS Flush) 2 ml BID IV FLUSH Last administered on 12/15/16 21: 27; Start 12/15/16 at 21:00; Stop 12/17/16 at 14:05; Status DC Acetaminophen (Tylenol) 650 mg Q4H PRN PO TEMP > 100.4; Start 12/15/16 at 18:30 Ondansetron HCl (Zofran Inj) 4 mg Q6H PRN IVP NAUSEA OR VOMITING; Start at 18:30 Naloxone HCl (Narcan Inj) 0.4 mg UNSCH PRN IV PUSH SEE LABEL COMMENTS; Start at 18:30; Stop 12/17/16 at 14:04; Status DC Senna/Docusate Sodium (Samreen-Colace) 1 tab BID PO Last administered on 09:17; Start 12/15/16 at 21:00 Magnesium Hydroxide (Milk Of Magnesia Liq) 30 ml Q12H PRN PO MILD - MODERATE CONSTIPATION Last administered on 12/18/16 17:49; Start 12/15/16 at 18:30 Sennosides (Senokot) 17.2 mg Q12H PRN PO MODERATE - SEVERE CONSTIPATION; Start 12/15/16 at 18:30 Bisacodyl (Dulcolax Supp) 10 mg DAILY PRN RECTAL SEVERE CONSITIPATION; Start at 18:30 Lactulose (Lactulose Liq) 30 ml DAILY PRN PO SEVERE CONSITIPATION; Start at 18:30 Piperacillin Sod/ Tazobactam Sod 100 ml @ 200 mls/hr ONCE ONCE IV Last administered on 12/15/16 18:43; Start 12/15/16 at 18:30; Stop 12/15/16 at 18:59 ; Status DC Clindamycin Phosphate 900 mg/ Sodium Chloride 106 ml @ 212 mls/hr ONCE ONCE IV Last administered on 12/15/16 21:27; Start 12/15/16 at 18:30; Stop at 18:59; Status DC Morphine Sulfate (Morphine Inj) 2 mg Q3H PRN IV PUSH pain 1-10 Last administered on 12/18/16 12:41; Start 12/15/16 at 18:45 Diphtheria/ Tetanus/Acell Pertussis (Boostrix Inj) 0.5 ml ONCE ONCE IM ; Start 12/15/16 at 18:45; Stop 12/15/16 at 18:46; Status DC Ampicillin Sodium/ Sulbactam Sodium 3 gm/Sodium Chloride 100 ml @ 200 mls/hr Q6H IV Last administered on 12/16/16 09:13; Start 12/15/16 at 20:00; Stop at 18:37; Status DC Clindamycin Phosphate 600 mg/ Sodium Chloride 104 ml @ 208 mls/hr Q6H IV Last administered on 12/18/16 20:03; Start 12/16/16 at 02:00; Stop 12/18/16 at 23:11 ; Status DC Lactated Ringer's 1,000 ml @ 30 mls/hr Q24H PRN IV SEE LABEL COMMENTS; Start at 04:00; Stop 12/19/16 at 03:59; Status DC Sodium Chloride 500 ml @ 30 mls/hr [id number] PRN IV SEE LABEL COMMENTS; Start at 04:00; Stop 12/19/16 at 03:59; Status DC Metoprolol Tartrate (Lopressor) 25 mg MELT SUPERVISOR PRN PO SEE LABEL COMMENTS; Start 12/16/16 at 04:00; Stop 12/19/16 at 03:59; Status DC Povidone Iodine (Betadine 5% Antisepsis Kit) 1 applic MELT SUPERVISOR PRN EACH NARE SEE LABEL COMMENTS; Start 12/16/16 at 04:00; Stop 12/19/16 at 03:59; Status DC Chlorhexidine Gluconate (Chlorhexidine 2% Cloth) 3 pack MELT SUPERVISOR PRN TOPICAL SEE LABEL COMMENTS; Start 12/16/16 at 04:00; Stop 12/19/16 at 03:59; Status DC Insulin Human Regular (NovoLIN R INJ) See Protocol Table ... MELT SUPERVISOR PRN SQ SEE PROTOCOL TABLE; Start 12/16/16 at 04:00; Stop 12/19/16 at 03:59; Status DC Sodium Chloride (NS Flush) 2 ml UNSCH PRN IV FLUSH FLUSH AFTER USING IV ACCESS ; Start 12/16/16 at 15:45 Sodium Chloride (NS Flush) 2 ml BID IV FLUSH Last administered on 12/19/16 09: 18; Start 12/16/16 at 21:00 Miscellaneous Information (Post-op Orders (for Pharmacy)) STAT ONCE XX ; Start 12/16/16 at 15:45; Stop 12/16/16 at 15:46; Status DC Hydromorphone HCl (Dilaudid Pf Inj) 1 mg Q3H PRN IV PUSH Pain 6-10;if unable to take PO; Start 12/16/16 at 15:45; Stop 12/17/16 at 11:20; Status DC Hydromorphone HCl (Dilaudid Pf Inj) 1 mg Q3H PRN IV PUSH BREAKTHROUGH PAIN; Start 12/16/16 at 15:45; Stop 12/17/16 at 11:20; Status DC Hydromorphone HCl (Dilaudid) 1 mg Q4H PRN PO PAIN SCALE 3 TO 5; Start 12/16/16 at 15:45; Stop 12/17/16 at 11:20; Status DC Naloxone HCl (Narcan Inj) 0.4 mg UNSCH PRN IV PUSH SEE LABEL COMMENTS; Start at 15:45 Bupivacaine HCl (Marcaine Pf 0.5% Inj) 20 ml ONCE ONCE INFIL Last administered on 12/16/16 15:00; Start 12/16/16 at 15:37; Stop 12/16/16 at 15:39 ; Status DC Levofloxacin/ Dextrose 150 ml @ 100 mls/hr Q24H IV Last administered on 17:50; Start 12/16/16 at 18:00; Stop 12/18/16 at 23:16; Status DC Doxycycline Hyclate 100 mg/ Sodium Chloride 100 ml @ 100 mls/hr Q12H IV ; Start 12/16/16 at 18:00; Stop 12/16/16 at 20:22; Status DC Potassium Chloride (KCl) 30 meq ONCE ONCE PO Last administered on 12/16/16 20 :32; Start 12/16/16 at 19:30; Stop 12/16/16 at 19:31; Status DC Doxycycline Hyclate 100 mg/ Sodium Chloride 100 ml @ 100 mls/hr Q12H IV Last administered on 12/19/16 09:16; Start 12/16/16 at 21:00; Stop 12/19/16 at 09:00 ; Status DC Oxycodone/ Acetaminophen (Percocet 5-325 Mg) 1 tab Q4H PRN PO pain 1-7; Start 12/17/16 at 11:30 Oxycodone/ Acetaminophen (Percocet 5-325 Mg) 2 tab Q4H PRN PO pain 8-10 Last administered on 12/18/16 23:08; Start 12/17/16 at 11:30 Melatonin (Melatonin) 5 mg HS PO Last administered on 12/18/16 20:03; Start at 21:00 A/P Assessment and Plan 26-year-old male who presented with left foot wounds secondary shark bites Left foot wounds/injury secondary to shark bites -X-ray obtained showing midfoot swelling. MRI showed deep tissue laceration, rupture of the extensor digitorum longus with separation, separation of the extensor digitorum brevis, rupture of the abductor pollicis. -Status post irrigation of wound and repair of extensor digitorum and brevis tendon with wound VAC placement on 12/16/[address] Powell. Management of her Dr. Powell. Patient had wound VAC replaced on 12/18. Per Dr. Powell if wound looks good on then will get split-thickness skin graft for Saturday. -Infectious disease consulted s/p IV Levaquin, doxycycline, clindamycin. completed antibiotics therapy already. -Status post Tdap. Leukocytosis, resolved. -Most likely secondary to wound. Treatment as above. -Continue to monitor clinically. Anita Pina MD Dec 19, 2016 10:12
[2016-12-19 11:59] VITALS: BP 136/86; PULSE 82; RESP 18; TEMP 98.4; O2SAT 100
[2016-12-19] MEDS: MAGNESIUM HYDROXIDE SUSP 30 ML CUP PO PRN (12:09)
[2016-12-19] MEDS: oxyCODONE/ACETAMINOPHEN 5 MG/325 MG TAB PO PRN ×2 (12:10→16:40)
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
[2016-12-19 16:00] VITALS: BP 144/77; PULSE 74; RESP 18; TEMP 98.3; O2SAT 100
[2016-12-19 20:09] VITALS: BP 136/90; PULSE 75; RESP 18; TEMP 97.9; O2SAT 100
[2016-12-19] MEDS: MELATONIN 5 MG TAB PO SCH (20:46)
[2016-12-20 00:15] VITALS: BP 114/83; PULSE 73; RESP 18; TEMP 98.4; O2SAT 97
[2016-12-20 00:35] VITALS: BP 124/87; PULSE 65; RESP 16; TEMP 97.6; O2SAT 97
[2016-12-20 07:45] VITALS: BP 123/81; PULSE 76; RESP 18; TEMP 96.7; O2SAT 99
[2016-12-20] MEDS: SODIUM CHLORIDE 0.9% FLUSH 10 ML FLUSH IV FLUSH SCH ×2 (09:19→19:21)
[2016-12-20] MEDS: DOCUSATE SODIUM 50 MG/SENNA 8.6 MG TAB PO SCH ×2 (09:19→19:21)
--- NOTE | 2016-12-20 09:48 | HHI.PR ---
Subjective Remarks Follow up left foot wound s/p shark bite. Patient is resting in bed, denies any pain. States pain is controlled. Wound vac to left foot, awaiting podiatry for news on skin graft tomorrow. No fevers overnight. Patient states he had a BM this AM. The pt says his pain is controlled. He had a bowel movement this AM. Has been sleeping well. Awaiting further surgery tomorrow. Discussed with podiatry. Objective Vitals Vital Signs Date Time Temp Pulse Resp B/P (MAP) Pulse Ox O2 Delivery O2 Flow Rate FiO2 12/20/16 07:45 96.7 76 18 123/81 (95) 99 12/20/16 00:35 97.6 65 16 124/87 (99) 97 12/19/16 20:09 97.9 75 18 136/90 (105) 100 12/19/16 16:00 98.3 74 18 144/77 (99) 100 12/19/16 11:59 98.4 82 18 136/86 (103) 100 I/O 12/19/16 12/19/16 12/19/16 12/20/16 12/20/16 12/20/16 07:00 15:00 23:00 07:00 15:00 23:00 Intake Total 444 ml 750 ml 480 ml 240 ml Output Total 700 ml 300 ml 500 ml 0 ml 475 ml Balance -256 ml 450 ml -20 ml 0 ml -235 ml Intake Oral 240 ml 650 ml 480 ml 240 ml IV Total 204 ml 100 ml Output Urine Total 700 ml 300 ml 500 ml 475 ml Drainage Total 0 ml 0 ml 0 ml 0 ml # Voids 3 1 # Bowel Movements 0 0 0 1 Result Diagram: 12/17/16 1724 12/17/16 1724 Imaging Last Impressions Foot X-Ray 12/15/16 1732 Signed Impressions: Service Date/Time: Thursday, December 15, 2016 17:49 - CONCLUSION: 1. Left midfoot soft tissue swelling without subcutaneous emphysema, radiopaque foreign body, or acute bony fracture. Alec Bauer MD Foot MRI 12/15/16 0000 Signed Impressions: Service Date/Time: Thursday, December 15, 2016 19:24 - CONCLUSION: 1. Deep soft tissue laceration dorsally of the midfoot and with associated rupture of extensor digitorum longus with 27 mm of separation. There is a 12 mm cleft of extensor digitorum brevis muscle belly. 2. Deep soft tissue laceration of the plantar/medial midfoot and with a 10 mm rupture of abductor pollicis. 3. No fracture or subluxation. Louie Colón MD Objective Remarks GENERAL: In NAD, laying in bed. Comfortable. SKIN: Warm and dry. wound vac in HEAD: Atraumatic. Normocephalic. EYES: Pupils equal and round and reactive. ENT: No nasal bleeding or discharge. Mucous membranes pink and moist. NECK: Trachea midline. No JVD. CARDIOVASCULAR: Regular rate and rhythm. RESPIRATORY: No accessory muscle use. Clear to auscultation. Breath sounds equal bilaterally. GASTROINTESTINAL: Abdomen soft, non-tender, nondistended. BSx4 MUSCULOSKELETAL: Limited movement to left foot, sensation intact. Left foot bandaged. NEUROLOGICAL: Awake and alert. Motor grossly within normal limits. Normal speech. PSYCHIATRIC: Appropriate mood and affect; insight and judgment normal. Medications and IVs Current Medications Medications (Trade) Dose Ordered Sig/Naon Route Start Time Stop Time Status Last Admin (Tylenol) 650 mg Q4H PRN PO 12/15/16 18:30 (Zofran Inj) 4 mg Q6H PRN IVP 12/15/16 18:30 (Samreen-Colace) 1 tab BID PO 12/15/16 21:00 12/20/16 09:19 (Milk Of Magnesia Liq) 30 ml Q12H PRN PO 12/15/16 18:30 12/19/16 12:09 (Senokot) 17.2 mg Q12H PRN PO 12/15/16 18:30 (Dulcolax Supp) 10 mg DAILY PRN RECTAL 12/15/16 18:30 12/20/16 05:42 (Lactulose Liq) 30 ml DAILY PRN PO 12/15/16 18:30 12/19/16 20:46 (Morphine Inj) 2 mg Q3H PRN IV PUSH 12/15/16 18:45 12/18/16 12:41 (NS Flush) 2 ml UNSCH PRN IV FLUSH 12/16/16 15:45 (NS Flush) 2 ml BID IV FLUSH 12/16/16 21:00 12/20/16 09:19 (Narcan Inj) 0.4 mg UNSCH PRN IV PUSH 12/16/16 15:45 (Percocet 5-325 Mg) 1 tab Q4H PRN PO 12/17/16 11:30 12/19/16 16:40 (Percocet 5-325 Mg) 2 tab Q4H PRN PO 12/17/16 11:30 12/19/16 12:10 (Melatonin) 5 mg HS PO 12/17/16 21:00 12/19/16 20:46 Urinary Catheter: No Vascular Central Line Catheter: No A/P Assessment and Plan 26-year-old male who presented with left foot wounds secondary shark bites Left foot wounds/injury secondary to shark bite -X-ray obtained showing midfoot swelling. MRI showed deep tissue laceration, rupture of the extensor digitorum longus with separation, separation of the extensor digitorum brevis, rupture of the abductor pollicis. -Status post irrigation of wound and repair of extensor digitorum and brevis tendon with wound VAC placement on 12/16/[address] Powell. Management per Dr. Powell. Patient had wound VAC replaced on 12/18. Per Dr. Powell if wound looks good on then will get split-thickness skin graft for Saturday. -Infectious disease consulted s/p IV Levaquin, doxycycline, clindamycin. completed antibiotics therapy already. -Status post Tdap. -Pain management with PO Percocet, and morphine IV prn Plan for skin graft on 12/21. Pain control as needed. Continue PT. Add OT. Follow up with podiatry. Leukocytosis, secondary to wound, resolved. Discharge Planning The exam, history, and the medical decision-making described in the above note were completed with the assistance of the mid-level provider. I reviewed and agree with the findings presented. I attest that I had a [id number] encounter with the patient on the same day, and personally performed and documented my assessment and findings in the medical record. Karrie Armenta Dec 20, 2016 09:48 Augustus Martinez DO Dec 20, 2016 13:20
[2016-12-20] MEDS: oxyCODONE/ACETAMINOPHEN 5 MG/325 MG TAB PO PRN ×3 (11:43→21:08)
[2016-12-20 12:00] VITALS: BP 129/89; PULSE 92; RESP 18; TEMP 97.4; O2SAT 99
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
[2016-12-20 15:55] VITALS: BP 150/97; PULSE 99; RESP 18; TEMP 98.3; O2SAT 100
[2016-12-20] MEDS: MELATONIN 5 MG TAB PO SCH (19:21)
[2016-12-20 20:00] VITALS: BP 134/78; PULSE 75; RESP 16; TEMP 98.5; O2SAT 100
[2016-12-21] VITALS (7 sets, daily range): BP systolic 90–153; BP diastolic 67–86; PULSE 68–97; RESP 16–18; TEMP 96.8–98.3; O2SAT 98–100
[2016-12-21] MEDS ORDERED: LACTATED RINGER'S 1000 ML IV PRN (03:45)
[2016-12-21] MEDS ORDERED: POVIDONE IODINE 5% (ANTISEPSIS KIT) 4 APPLICATIONS EACH NARE PRN (03:45)
[2016-12-21] MEDS ORDERED: CHLORHEXIDINE GLUCONATE 2 % 1 PACK (2 CLOTHS) TOPICAL PRN (03:45)
[2016-12-21] MEDS ORDERED: INSULIN HUMAN REGULAR 1,000 UNITS/10 ML VIAL SQ PRN (03:45)
[2016-12-21] MEDS ORDERED: ACETAMINOPHEN 1000 MG/100 ML 100 ML IV ONE (08:24)
[2016-12-21] MEDS ORDERED: FAMOTIDINE 20 MG/2 ML VIAL ONE (08:24)
[2016-12-21] MEDS: DOCUSATE SODIUM 50 MG/SENNA 8.6 MG TAB PO SCH ×2 (09:00→20:54)
[2016-12-21] MEDS ORDERED: MINERAL OIL 10 ML VIAL ONE (09:08)
[2016-12-21] MEDS ORDERED: Post-op Orders (for Pharmacy) MISC XX ONE (10:00)
[2016-12-21] MEDS ORDERED: NALOXONE HCL 0.4 MG/ML AMP IV PUSH PRN (10:00)
[2016-12-21] MEDS ORDERED: SODIUM CHLORIDE 0.9% FLUSH 10 ML FLUSH IV FLUSH PRN (10:00)
[2016-12-21] MEDS ORDERED: DO NOT ADM ANY ANTICOAGULANT DRUGS PRN (10:00)
--- NOTE | 2016-12-21 10:05 | PD.OP ---
Operative Report Date of Surgery: Dec 21, 2016 Preoperative Diagnosis: (1) Bitten by shark, subsequent encounter Left foot Postoperative Diagnosis: (1) Bitten by shark, subsequent encounter Left foot Procedure: Split-thickness skin graft from left thigh to left foot for defect coverage Anesthesia: General inhalation Surgeon: Rickie Powell DPM Cleaning Maid(s): Carmina NEWELL Operation and Findings: Patient is brought to the operating room placed on the operating table in the supine position. Patient was given general inhalation anesthesia. The left thigh was shaved to remove all hair. Patient was then prepped and draped in the usual sterile manner. After the appropriate timeout was performed attention was directed to the left foot which had numerous skin defects from a shark bite. Last week and underwent tendon repair. Attention was directed to the defect sites with a nice granulating base. These areas were roughed up with a bone curet removing necrotic tissue. Attention was directed to the proximal left calf where after application of mineral oil to 1 inch wide pieces of split-thickness skin graft harvested at 1600 inches thick were harvested. These pieces of skin were then meshed with a 2 to one mesher. The skin graft pieces were placed over the defects of the left foot and stapled in place. The wound sites on the left foot were dressed with Adaptic 4 x 4's Anatoly and an Bobby bandage. The harvest site was anesthetized with 15 cc of 0.25% Marcaine with epinephrine. The area is covered with a OpSite 4 x 4's ABDs and a Anatoly roll with Bobby bandage. Estimated blood loss was less than 10 cc Sponge and instrument count were noted to be correct. No pathology specimen was sent. Patient tolerated procedures and anesthesia well and left the OR to put PACU in apparent satisfactory condition with all vital signs stable. Rickie Powell DPM Dec 21, 2016 10:05
[2016-12-21] MEDS ORDERED: *morphine SULFATE 8 MG/ML PERIprocedure ONLY ONE (10:26)
[2016-12-21] MEDS ORDERED: MIDAZOLAM HCL 2 MG/2 ML VIAL IV ONE (12:00)
[2016-12-21] MEDS ORDERED: PROPOFOL 200 MG/20 ML AMP IV ONE (12:00)
[2016-12-21] MEDS ORDERED: ONDANSETRON HCL 4 MG/2 ML VIAL IV PUSH ONE (12:00)
[2016-12-21] MEDS ORDERED: DEXAMETHASONE SOD PHOS 4 MG/ML VIAL IV ONE (12:00)
[2016-12-21] MEDS ORDERED: LIDOCAINE HCL 1% PF 5 ML AMPULE OTHER ONE (12:00)
[2016-12-21] MEDS: oxyCODONE/ACETAMINOPHEN 5 MG/325 MG TAB PO PRN ×3 (13:01→20:54)
--- NOTE | 2016-12-21 15:06 | HHI.PR ---
Subjective Remarks The patient's family was at the bedside. The patient was receiving instruction from therapy. He had no acute complaints. He was wondering about getting some stronger pain medications as the nerve block was not working anymore. He tolerated the procedure well. Objective Vitals Vital Signs Date Time Temp Pulse Resp B/P (MAP) Pulse Ox O2 Delivery O2 Flow Rate FiO2 12/21/16 12:00 97.4 80 18 118/75 (89) 100 12/21/16 11:00 97.8 81 16 129/74 (92) 100 Room Air 12/21/16 10:45 78 16 127/75 (92) 99 Room Air 12/21/16 10:31 15 12/21/16 10:30 75 15 124/71 (88) 98 Room Air 12/21/16 10:15 74 15 125/68 (87) 96 Room Air 12/21/16 10:00 97.7 70 13 135/85 (102) 100 Simple Mask 7 12/21/16 07:57 97.8 68 18 90/67 (75) 98 12/21/16 04:00 96.9 77 16 117/71 (86) 98 12/21/16 00:15 96.8 81 17 127/81 (96) 99 12/20/16 20:00 98.5 75 16 134/78 (96) 100 12/20/16 15:55 98.3 99 18 150/97 (114) 100 I/O 12/20/16 12/20/16 12/20/16 12/21/16 12/21/16 12/21/16 07:00 15:00 23:00 07:00 15:00 23:00 Intake Total 1240 ml 720 ml 0 ml Output Total 0 ml 1075 ml 650 ml Balance 0 ml 165 ml 720 ml -650 ml Intake Oral 1240 ml 720 ml 0 ml Output Urine Total 1075 ml 650 ml Drainage Total 0 ml # Voids 1 2 0 # Bowel Movements 1 Result Diagram: 12/17/16172312/17/161723 Imaging Last Impressions Foot X-Ray 12/15/161731 Signed Impressions: Service Date/Time: Thursday, December 15, 2016 17:49 - CONCLUSION: 1. Left midfoot soft tissue swelling without subcutaneous emphysema, radiopaque foreign body, or acute bony fracture. Alec Bauer MD Foot MRI 12/15/16 0000 Signed Impressions: Service Date/Time: Thursday, December 15, 2016 19:24 - CONCLUSION: 1. Deep soft tissue laceration dorsally of the midfoot and with associated rupture of extensor digitorum longus with 27 mm of separation. There is a 12 mm cleft of extensor digitorum brevis muscle belly. 2. Deep soft tissue laceration of the plantar/medial midfoot and with a 10 mm rupture of abductor pollicis. 3. No fracture or subluxation. Louie Colón MD Objective Remarks GENERAL: In NAD, laying in bed. Comfortable. SKIN: Warm and dry. wound vac in HEAD: Atraumatic. Normocephalic. EYES: Pupils equal and round and reactive. ENT: No nasal bleeding or discharge. Mucous membranes pink and moist. NECK: Trachea midline. No JVD. CARDIOVASCULAR: Regular rate and rhythm. RESPIRATORY: No accessory muscle use. Clear to auscultation. Breath sounds equal bilaterally. GASTROINTESTINAL: Abdomen soft, non-tender, nondistended. BSx4 MUSCULOSKELETAL: Limited movement to left foot, sensation intact. Left foot bandaged. NEUROLOGICAL: Awake and alert. Motor grossly within normal limits. Normal speech. PSYCHIATRIC: Appropriate mood and affect; insight and judgment normal. Procedures Split-thickness skin graft from left thigh to left foot for defect coverage 12/21 Medications and IVs Current Medications Medications (Trade) Dose Ordered Sig/Nano Route Start Time Stop Time Status Last Admin (Tylenol) 650 mg Q4H PRN PO 12/15/16 18:30 (Zofran Inj) 4 mg Q6H PRN IVP 12/15/16 18:30 (Samreen-Colace) 1 tab BID PO 12/15/16 21:00 12/20/16 19:21 (Milk Of Magnesia Liq) 30 ml Q12H PRN PO 12/15/16 18:30 12/19/16 12:09 (Senokot) 17.2 mg Q12H PRN PO 12/15/16 18:30 (Dulcolax Supp) 10 mg DAILY PRN RECTAL 12/15/16 18:30 12/20/16 05:42 (Lactulose Liq) 30 ml DAILY PRN PO 12/15/16 18:30 12/19/16 20:46 (Morphine Inj) 2 mg Q3H PRN IV PUSH 12/15/16 18:45 12/18/16 12:41 (Percocet 5-325 Mg) 1 tab Q4H PRN PO 12/17/16 11:30 12/20/16 21:08 (Percocet 5-325 Mg) 2 tab Q4H PRN PO 12/17/16 11:30 12/19/16 12:10 (Melatonin) 5 mg HS PO 12/17/16 21:00 12/20/16 19:21 Lactated Ringer's 1,000 ml @ 30 mls/hr Q24H PRN IV 12/21/16 03:45 12/24/16 03:44 (Betadine 5% Antisepsis Kit) 1 applic CRIMINAL JUSTICE FACULTY PRN EACH NARE 12/21/16 03:45 12/24/16 03:44 (Chlorhexidine 2% Cloth) 3 pack [employer] FAC[employer]Y PRN TOPICAL 12/21/16 03:45 12/24/16 03:44 (NovoLIN R INJ) See Protocol Table ... CR[employer]INAL [employer]ICE FACULTY PRN SQ 12/21/16 03:45 12/24/16 03:44 (NS Flush) 2 ml UNSCH PRN IV FLUSH 12/21/16 10:00 (NS Flush) 2 ml BID IV FLUSH 12/21/16 21:00 (Narcan Inj) 0.4 mg UNSCH PRN IV PUSH 12/21/16 10:00 Miscellaneous Information ALL NURSING DEPARTME... UNSCH PRN .XX 12/21/16 10:00 12/22/16 09:59 A/P Assessment and Plan 26-year-old male who presented with left foot wounds secondary shark bites Left foot wounds/injury secondary to shark bite -X-ray obtained showing midfoot swelling. MRI showed deep tissue laceration, rupture of the extensor digitorum longus with separation, separation of the extensor digitorum brevis, rupture of the abductor pollicis. -Status post irrigation of wound and repair of extensor digitorum and brevis tendon with wound VAC placement on 12/16/[address] Powell. Management per Dr. Powell. Patient had wound VAC replaced on 12/18. S/p split-thickness skin graft from left thigh to left foot for defect coverage 12/21. -Infectious disease consulted s/p IV Levaquin, doxycycline, clindamycin. completed antibiotics therapy already. -Status post Tdap. -Pain management with PO Percocet, and morphine IV prn for breakthrough. - PT/ OT. Hypokalemia Seems resolved. - check BMP in AM. Discharge Planning Awaiting podiatry clearance Augustus Martinez DO Dec 21, 2016 15:06
[2016-12-21] MEDS ORDERED: MORPHINE SULFATE 4 MG/ML INJ IV PUSH PRN (15:15)
[2016-12-21] MEDS ORDERED: MORPHINE SULFATE 4 MG/ML INJ IV PUSH ONE (15:15)
[2016-12-21] MEDS: SODIUM CHLORIDE 0.9% FLUSH 10 ML FLUSH IV FLUSH SCH (21:00)
[2016-12-22] VITALS: BP 143/87; PULSE 72; RESP 16; TEMP 98.2; O2SAT 97
[2016-12-22] MEDS: MELATONIN 5 MG TAB PO SCH (01:39)
[2016-12-22] MEDS: oxyCODONE/ACETAMINOPHEN 5 MG/325 MG TAB PO PRN ×4 (01:39→17:55)
[2016-12-22 04:00] VITALS: BP 125/71; PULSE 79; RESP 16; TEMP 98.6; O2SAT 97
[2016-12-22 05:03] LABS: HEMATOCRIT 40.1 % (39.0-51.0); MEAN CELL VOLUME 91.4 FL (80.0-100.0); MEAN CORPUSCULAR HEMOGLOBIN 31.6 PG (27.0-34.0); MEAN CORPUSCULAR HGB CONC 34.6 % (32.0-36.0); PLATELET COUNT 205 TH/MM3 (150-450); RED BLOOD COUNT 4.39 MIL/MM3 (4.50-5.90); RED CELL DISTRIBUTION WIDTH 13.2 % (11.6-17.2); REVIEW FLAG FINAL; WHITE BLOOD COUNT 10.9 TH/MM3 (4.0-11.0)
[2016-12-22 05:06] LABS: BICARBONATE 27.2 MEQ/L (21.0-32.0); POTASSIUM 3.5 MEQ/L (3.5-5.1)
[2016-12-22] MEDS: DOCUSATE SODIUM 50 MG/SENNA 8.6 MG TAB PO SCH (07:43)
[2016-12-22 07:44] VITALS: BP 135/78; PULSE 82; RESP 17; TEMP 96.8; O2SAT 100
[2016-12-22] MEDS: SODIUM CHLORIDE 0.9% FLUSH 10 ML FLUSH IV FLUSH SCH (09:00)
[2016-12-22 10:07] VITALS: O2SAT 98
[2016-12-22 11:40] VITALS: BP 143/73; PULSE 88; RESP 17; TEMP 97.5; O2SAT 98
[2016-12-22] MEDS ORDERED: OXYC1TAB63 PO (11:47)
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
[2016-12-22] MEDS ORDERED: POTASSIUM CHLORIDE 25 MEQ EFFERVESCENT TAB PO ONE (12:30)
--- NOTE | 2016-12-22 12:34 | HHI.DS ---
Discharge Summary Admission Date Dec 15, 2016 at 18:20 Discharge Date: Dec 22, 2016 Admitting Diagnosis LEFT FOOT SHARK BITE WITH EXTENSOR TENDON INJURY (1) Bitten by shark, initial encounter ICD Code: W56.41XA - Bitten by shark, initial encounter Diagnosis: Principal Status: Acute (2) Foot injury ICD Code: S99.929A - Unspecified injury of unspecified foot, initial encounter Status: Acute Procedures Split-thickness skin graft from left thigh to left foot for defect coverage 12/21 Brief History - From Admission This is a 26-year-old healthy male who presented with left foot wound secondary to shark bit. Patient went to the ER immediately after the shark bite. He stated that he is able to feel sensation and stated that pain is mild. Patient unsure when he last got his tetanus shot. Denies any fevers or chills. He has no other complaints. All other review systems reviewed and negative CBC/BMP: 12/22/16 0305 12/22/16 0305 Significant Findings Laboratory Tests Test 12/22/16 03:05 Red Blood Count 4.39 MIL/MM3 (4.50-5.90) Random Glucose 110 MG/DL (74-106) Imaging Last Impressions Foot X-Ray 12/15/16 1732 Signed Impressions: Service Date/Time: Thursday, December 15, 2016 17:49 - CONCLUSION: 1. Left midfoot soft tissue swelling without subcutaneous emphysema, radiopaque foreign body, or acute bony fracture. Alec Bauer MD Foot MRI 12/15/16 0000 Signed Impressions: Service Date/Time: Thursday, December 15, 2016 19:24 - CONCLUSION: 1. Deep soft tissue laceration dorsally of the midfoot and with associated rupture of extensor digitorum longus with 27 mm of separation. There is a 12 mm cleft of extensor digitorum brevis muscle belly. 2. Deep soft tissue laceration of the plantar/medial midfoot and with a 10 mm rupture of abductor pollicis. 3. No fracture or subluxation. Louie Colón MD PE at Discharge GENERAL: In NAD, laying in bed. Comfortable. SKIN: Warm and dry. wound vac in HEAD: Atraumatic. Normocephalic. EYES: Pupils equal and round and reactive. ENT: No nasal bleeding or discharge. Mucous membranes pink and moist. NECK: Trachea midline. No JVD. CARDIOVASCULAR: Regular rate and rhythm. RESPIRATORY: No accessory muscle use. Clear to auscultation. Breath sounds equal bilaterally. GASTROINTESTINAL: Abdomen soft, non-tender, nondistended. BSx4 MUSCULOSKELETAL: Limited movement to left foot, sensation intact. Left foot bandaged. NEUROLOGICAL: Awake and alert. Motor grossly within normal limits. Normal speech. PSYCHIATRIC: Appropriate mood and affect; insight and judgment normal. Pt update on day of discharge The patient was feeling well and able to go home later on today. He was not sure if he wanted home health care. He requested a form to be filled out. Discussed with nursing. Hospital Course Left foot wounds secondary to shark bite X-ray obtained showed midfoot swelling. MRI showed deep tissue laceration, rupture of the extensor digitorum longus with separation, separation of the extensor digitorum brevis and rupture of the abductor pollicis. Podiatry and infectious disease was consulted. He was started on antibiotics and pain control. Status post irrigation of wound and repair of extensor digitorum and brevis tendon with wound VAC placement on 12/16/[address] Powell. Patient then had the wound VAC replaced on 12/18. S/p split-thickness skin graft from left thigh to left foot for defect coverage 12/21. The wound vac has been removed. S/p IV Levaquin, doxycycline and clindamycin. Status post Tdap. He worked with PT/ OT. He was cleared for discharge by podiatry. He will follow up with podiatry on Saturday. He will be discharged with Percocet. He will be discharged with home health care. Pt Condition on Discharge: Good Discharge Disposition: Disch w/ Home Health Serv Discharge Time: > 30 minutes Discharge Instructions Follow up Referrals: PCP Follow-up - 1 Week Podiatry - 12/26/[address] Powell New Medications: Oxycodone-Acetaminophen (Oxycodone-Acetaminophen) 5-325 mg Tab 1 TAB PO Q4H PRN for pain 1-5 for 10 Days, #60 TAB 0 Refills Augustus Martinez DO Dec 22, 2016 12:33
== END 2016-12-22 18:59 | disposition home health service (06) | DRG 577 ==
LOC: NEPD 17:05 → NEDA 18:20 → N06B 19:57
PROVIDERS: ADMIT Hospitalist; ATTEND Hospitalist
PROC: 0HDNXZZ Extraction of Left Foot Skin, External Approach (ICD-10-PCS; 2016-12-16)
PROC: 0LQW0ZZ Repair Left Foot Tendon, Open Approach (ICD-10-PCS; principal; 2016-12-16 14:42)
PROC: 0HRNX74 Replacement of Left Foot Skin with Autologous Tissue Substitute, Partial Thickness, External Approach (ICD-10-PCS; 2016-12-21)
PROC: 0HBJXZZ Excision of Left Upper Leg Skin, External Approach (ICD-10-PCS; 2016-12-21)
DX: S91.352A Open bite, left foot, initial encounter (principal); S96.122A Laceration of muscle and tendon of long extensor muscle of toe at ankle and foot level, left foot, initial encounter; E87.6 Hypokalemia; D72.829 Elevated white blood cell count, unspecified; W56.41XA Bitten by shark, initial encounter; Y93.18 Activity, surfing, windsurfing and boogie boarding; Y92.832 Beach as the place of occurrence of the external cause; Z88.8 Allergy status to other drugs, medicaments and biological substances
CPT/HCPCS: 73630; 73718; 80048; 83735; 85025; 85027; 85610; 85730; E0113; J0131; J0295; J1100; J1956; J2250; J2270; J2405; J2543; J2710; J3010; J7030; L3260